=== PATIENT | male | born 1980 | race Caucasian/White ===

== ENCOUNTER 2020-06-28 01:07 | Emergency (ER) | payer BC, SELFPAY ==
[2020-06-28] VITALS (10 sets, daily range): BP systolic 104–149; BP diastolic 62–103; PULSE 81–125; RESP 17–30; TEMP 37.1; O2SAT 96–100
--- NOTE | ~2020-06-28 | XR_ITS ---
EXAMINATION: XR chest 2V DATE: 06/28/2020 03:04 INDICATION: Tachycardia. Weakness and intermittent right chest pain. TECHNIQUE: PA and lateral views of the chest were obtained. COMPARISON: Chest radiograph dated 01/05/2009 FINDINGS: The lungs remain clear with no focal airspace opacities, pulmonary edema, pleural effusion or pneumot horax. The cardiomediastinal silhouette is normal. Visualized bones and soft tissues are unremarkable . IMPRESSION: 1. Normal chest radiograph. Reviewed, dictated and finalized at location A. IMPRESSION: 1. Normal chest radiograph.
--- NOTE | 2020-06-28 01:25 | ECG_ITS ---
Measurements Intervals [place] Rate: 113 P: 40 DE: 139 QRS: 7 QRSD: 94 T: 29 QT: 308 QTc: 423 Interpretive Statements SINUS TACHYCARDIA DELAYED PRECORDIAL R/S TRANSITION ABNORMAL ECG Electronically Signed On 06-29-2020 7:31:46 CDT by Zach Lizarraga D.O.
[2020-06-28 02:00] LABS: Basophils Absolute Auto 0.1 K/mm3 (0.0-0.1); Basophils Percent Auto 0.5 % (0.2-1.2); Eosinophils Absolute Auto 0.2 K/mm3 (0-0.3); Eosinophils Percent Auto 1.9 % (0-4.4); Hematocrit 43.3 % (42.0-52.0); Hemoglobin 13.8 g/dL (14.0-18.0); Immature Granulocyte Absolute 0.05 K/mm3 (0.00-0.031); Immature Granulocyte Percent A 0.4 % (0-0.5); Lymphocytes Absolute Auto 3.56 K/mm3 (0.9-3.2); Lymphocytes Percent Auto 28.8 % (18.3-44.2); Mean Corpuscular HGB Conc 31.9 g/dl (32-36); Mean Corpuscular Hemoglobin 24.9 pg (26-34); Mean Corpuscular Volume 78.2 fl (80-100); Mean Platelet Volume 9.6 fl (7.4-10.4); Monocytes Absolute Auto 0.8 K/mm3 (0.1-0.6); Monocytes Percent Auto 6.3 % (2.6-8.5); Neutrophils Absolute Auto 7.7 K/mm3 (1.3-6.7); Neutrophils Percent Auto 62.1 % (45.5-73.1); Platelet Count Result 372 k/mm3 (150-375); Red Blood Count 5.54 M/mm3 (4.6-6.20); Red Cell Distribution Width 14.2 % (11.5-14.5); White Blood Count 12.4 K/mm3 (4.5-10.0)
[2020-06-28 02:12] LABS: Partial Thromboplastin Time 29.4 SECONDS (22.3-36.8); Prothrombin Time 12.8 Seconds (11.1-14.7)
[2020-06-28 02:24] LABS: Anion Gap 10 mmol/L (8-16); Blood Urea Nitrogen 15 mg/dL (9-20); Calcium 9.1 mg/dL (8.4-10.2); Carbon Dioxide 24 mmol/L (22-30); Chloride 103 mmol/L (98-107); Estimated Glomerular Filt Rate > 60; Glucose 180 mg/dL (75-110); Potassium 4.1 mmol/L (3.4-5.0); Sodium 137 mmol/L (137-145)
[2020-06-28 02:36] LABS: Troponin I < 0.012 ng/mL (0.000-0.034)
[2020-06-28] MEDS: ASPIRIN 81 MG CHEWABLE TABLET 324 MG PO (02:45)
--- NOTE | 2020-06-28 03:56 | ED.GENADULT ---
HPI - General Adult General Chief complaint: Recheck/Abnormal Lab/Rx Stated complaint: hi bp and pulse, lightheaded Time Seen by Provider: 06/28/20 03:40 Source: patient Mode of arrival: EMS Limitations: no limitations History of Present Illness HPI narrative: This patient is a 40 year old male who presents for evaluation of dizziness. He states approximately 3 hours ago he was standing at work when he started feeling weird . He states he felt like he was high and he was told her was pale. He was evaluated at his work's clinic and they told him his HR was 130 and he was hypertensive. He reports his symptoms have resolved now. He states he has right sternal chest pain early but he thought it was due to muscle cramp. He denies nausea, vomiting or diarrhea. Related Data Allergies Allergy/AdvReac Type Severity Reaction Status Date / Time No Known Allergies Allergy Verified 02/03/17 20:02 Review of Systems Review of Systems: All systems reviewed & are unremarkable except as noted in HPI and below Constitutional: Constitutional: Denies chills and Denies fever(s) ENT: Reports dizziness Cardiovascular: Cardiovascular: Reports chest pain Respiratory: Respiratory: Denies cough, Denies dyspnea and Denies wheezing Gastrointestinal: Gastrointestinal: Reports abdominal pain, Denies diarrhea, Denies nausea and Denies vomiting Neurologic: Denies headache(s), Denies focal weakness and Denies numbness PMFSH Past Medical History Medical History (Updated 06/28/20 @ 06:45 by Mila Hayward MD) Syncope Surgical History Surgical History (Updated 06/28/20 @ 04:03 by Mila Hayward MD) H/O cardiac catheterization Social History Social History (Updated 06/28/20 @ 04:04 by Mila Hayward MD) Smoking status: Never smoker Exam Const: General: no acute distress Orientation/consciousness: patient oriented x3 HENMT: Head: normocephalic and atraumatic Face and sinus: face symmetric Eyes: Pupils: Equal, round and reactive pupils present EOM: EOMs intact bilaterally Chest: Chest palpation & inspection: normal inspection of the chest Resp: Effort & Inspection: normal respiratory effort and no retractions Auscultation: clear to auscultation bilaterally Cardio: Rate: regular rate Rhythm: regular rhythm Heart sounds: no murmurs GI: GI Palp: Yes Soft to palpation, No Tenderness to palpation present (GI), No Guarding due to palpation present (GI), No Rigid due to palpation and No Hernia present Skin: General skin exam: normal color Rashes: no rashes Neuro: General: patient oriented x3 and moves all extremities Course Reevaluation(s) Reevaluation #1: PAtient has no complaints. He will follow up with PCP. He denies dizziness with standing up. Date: 06/28/20 Time: 06:43 Vital Signs Vital signs: Vital Signs Temperature 98.7 F 06/28/20 01:16 Pulse Rate 115 H 06/28/20 01:16 Respiratory Rate 18 06/28/20 01:16 Blood Pressure 149/103 H 06/28/20 01:16 Pulse Oximetry 100 06/28/20 01:16 Temperature 98.7 F 06/28/20 01:16 Pulse Rate 88 06/28/20 05:17 Respiratory Rate 28 H 06/28/20 05:17 Blood Pressure 104/62 06/28/20 05:17 Pulse Oximetry 97 06/28/20 05:17 Medical Decision Making Vital Signs Vital Signs: Vital Signs Temperature 98.7 F 06/28/20 01:16 Pulse Rate 115 H 06/28/20 01:16 Respiratory Rate 18 06/28/20 01:16 Blood Pressure 149/103 H 06/28/20 01:16 Pulse Oximetry 100 06/28/20 01:16 Temperature 98.7 F 06/28/20 01:16 Pulse Rate 88 06/28/20 05:17 Respiratory Rate 28 H 06/28/20 05:17 Blood Pressure 104/62 06/28/20 05:17 Pulse Oximetry 97 06/28/20 05:17 Lab Data Lab results reviewed: Yes I reviewed the patient's lab results. Result diagrams: 06/28/20 01:53 06/28/20 01:53 Labs: Lab Results 06/28/20 06/28/20 06/28/20 Range/Units 01:52 01:53 01:53 WBC 12.4 H (4.5-10.0) K/mm3
[2020-06-28 04:30] LABS: D Dimer 0.27 ug/mL (<0.48)
[2020-06-28 04:32] LABS: Add Urine Microscopic? YES; Appearance Urine Clear (Clear); Bilirubin Urine Negative (Negative); Blood Urine 1+ (Negative); Color Urine Yellow (Yellow); Glucose Urine UA Negative (Negative); Ketones Urine Negative (Negative); Leukocyte Esterase Ur Negative LEU/UL (Negative); Mucus Urine Moderate /lpf; Nitrate Urine Negative (Negative); Protein Urine Negative (Negative); Specific Grav Ur 1.027 (1.001-1.035); Squamous Epithelial Cell Urine Few /hpf (Few); Urobilinogen Urine Negative mg/dL (<2.0)
[2020-06-28 04:42] LABS: Troponin I < 0.012 ng/mL (0.000-0.034)
[2020-06-28] MEDS: LACTATED RINGERS 1,000 ML 999 ML IV CONT (05:17)
== END 2020-06-28 07:06 | disposition home or self-care (01) ==
PROVIDERS: Emergency Provider General Practice; PCP Nurse Practitioner Family
DX: R55 Syncope and collapse (principal); R00.0 Tachycardia, unspecified
CPT/HCPCS: 36415; 71046; 80048; 81001; 84484; 85025; 85380; 85610; 85730; 93005; 96360; 99284; A9270; J7120

== ENCOUNTER 2023-01-27 20:05 | Emergency (ER) | payer BC, SELFPAY ==
--- NOTE | ~2023-01-27 | CT_ITS ---
EXAMINATION: CT facial bones wo con DATE: 01/27/2023 20:51 INDICATION: Facial trauma TECHNIQUE: Computed tomography (CT) of the facial bones and maxillofacial region was performed withou t intravenous contrast. The dose-length product (DLP) was 572.57 mGy-cm. Automated exposure control a nd iterative reconstruction technique were employed. COMPARISON: None. FINDINGS: There is mild right periorbital soft tissue swelling. No facial fracture is identified. The globes and orbits are normal. The paranasal sinuses are clear. IMPRESSION: 1. Right periorbital soft tissue swelling without underlying osseous abnormality. Reviewed, dictated and finalized at location F. IMPRESSION: 1. Right periorbital soft tissue swelling without underlying osseous abnormalit y.
--- NOTE | ~2023-01-27 | XR_ITS ---
EXAMINATION: XR chest 2V DATE: 01/27/2023 20:45 INDICATION: Chest pain TECHNIQUE: PA and lateral views of the chest are obtained. COMPARISON: 06/28/2020 FINDINGS: There are minimal airspace opacities of the lower lobes. No pleural effusion or pneumothora x. The cardiomediastinal silhouette is normal. The visualized bones and soft tissues are unremarkable . IMPRESSION: 1. Minimal bibasilar airspace opacities, consistent with atelectasis versus pneumonia. Reviewed, dictated and finalized at location F. IMPRESSION: 1. Minimal bibasilar airspace opacities, consistent with atelectasis versus pne umonia.
--- NOTE | ~2023-01-27 | CT_ITS ---
EXAMINATION: CT brain wo con INDICATION: Head injury COMPARISON: None TECHNIQUE: Standard unenhanced head CT. The dose-length product (DLP) was 681.00 mGy-cm. The mA was a djusted according to patient size. Iterative reconstruction technique was employed. FINDINGS: There is no intracranial hemorrhage, acute infarction, or abnormal mass lesion. The ventric les are normal. There is no abnormal mass effect or midline shift. The galan-white matter differentiat ion is normal. The basal cisterns are patent. The orbits are normal. The paranasal sinuses, mastoids and calvarium are normal. IMPRESSION: 1. No acute intracranial abnormality. Reviewed, dictated and finalized at location F.
--- NOTE | 2023-01-27 20:07 | ECG_ITS ---
Measurements Intervals [place] Rate: 80 P: 38 [place]: 120 QRS: 25 QRSD: 90 T: 32 QT: 356 QTc: 413 Interpretive Statements SINUS RHYTHM BASELINE ARTIFACT- I, II, AVR, AVF NORMAL ECG COMPARED TO ECG 06/28/2020 01:32:13 SINUS RHYTHM NOW PRESENT Electronically Signed On 01-27-2023 22:37:19 CDT by Zach Lizarraga D.O.
[2023-01-27 20:08] VITALS: BP 159/88; PULSE 79; RESP 13; TEMP 36.6; O2SAT 100
[2023-01-27 20:11] VITALS: PULSE 88; RESP 19; O2SAT 100
[2023-01-27 20:15] VITALS: PULSE 73; RESP 24; O2SAT 99
--- NOTE | 2023-01-27 20:24 | ED.GENADULT ---
HPI - General Adult General Chief complaint: Chest Pain Stated complaint: Chest pain/syncopal Time Seen by Provider: 01/27/23 20:14 History of Present Illness HPI narrative: 42-year-old male presenting to the emergency department for evaluation after having a syncopal episode resulting in a fall and facial injury. Patient states this episode occurred approximately 2 hours ago. During the episode patient was having a verbal argument with his and states he did have some increasing anxiety. Patient states he did feel dizzy and lightheaded prior to the episode. Patient is unsure of how he found underneath self and how long he was unconscious. Patient is complaining of right-sided facial pain associated with a periorbital contusion patient is also complaining of reproducible left-sided chest wall pain that is worsened with moving his left arm. Patient reports he does have a prior history of anxiety and has had syncopal episodes. Patient has had admissions related to his syncope. Patient did have a prior stress test approximately 10 years ago which he reportedly failed. Patient did have a cardiac cath that was negative. Patient has no cardiac stents in place. Patient denies any alcohol or THC. Related Data Allergies Allergy/AdvReac Type Severity Reaction Status Date / Time No Known Allergies Allergy Verified 01/27/23 20:13 Review of Systems Review of Systems: All systems reviewed & are unremarkable except as noted in HPI and below PMFSH Past Medical History Medical History (Updated 01/28/23 @ 02:30 by Gab Alejo MD) Syncope Surgical History Surgical History (Updated 06/28/20 @ 04:03 by Mila Hayward MD) H/O cardiac catheterization Social History Social History (Updated 06/28/20 @ 04:04 by Mila Hayward MD) Smoking status: Never smoker Exam Narrative: APPEARANCE: Well appearing, no pain, no distress, well-nourished. HEAD: normocephalic, right-sided facial contusion around the right eye EYES: PERRLA/EOMI, conjunctivae clear. NOSE: Normal no drainage EARS:TMS clear with good light reflex. THROAT: Pharynx clear, no exudate. NECK: Supple. No adenopathy, no masses. RESPIRATORY: Airway patent, respirations nonlabored. Clear to auscultation bilaterally, no rales, rhonchi, wheezing. CARDIOVASCULAR: Regular rate and rhythm without murmurs rubs or gallops. ABDOMINAL: Soft, nontender, nondistended, normal bowel sounds MUSCULOSKELETAL: Moves all extremities. Strength/ROM intact, No edema, No calf tenderness. NEURO: Alert. Cranial nerves II through XII intact. Grossly intact SKIN: Warm, dry. Normal Color Course Course Emergency Course: 42-year-old male presented the ED for evaluation of head injury and syncope. Differential diagnosis for patient syncope does include hyperventilation, anxiety, vasovagal, cardiac arrhythmia, different diagnosis for his head injury does include intracranial abnormality including hemorrhage, facial fracture. Head CT was ordered to rule out any intracranial abnormality. Cardiac work-up is being ordered. 12:03 AM patient is afebrile with no leukocytosis. Patient's electrolytes are similar to his baseline. Patient's troponins were negative. Patient had a negative head and facial CT. Chest x-ray showed atelectasis. EKG showed normal sinus rhythm. Low concern for ACS. Patient's symptoms have resolved patient's had no further issues with heart palpitations or near syncope. Patient feels this was induced by the emotional upset. Patient's left-sided chest pain is very reproducible with palpation of the chest wall. Low concern for ACS. Patient was encouraged of close follow-up with his primary care physician. All question concerns were addressed. Patient was well-appearing at time of discharge. Vital Signs Vital signs: Vital Signs Temperature 97.8 F 01/27/23 20:08 Pulse Rate 79 01/27/23 20:08 Respiratory Rate 13 01/27/23 20:08 Blood Pressure 159/88 H
[2023-01-27 20:26] LABS: Basophils Absolute Auto 0.1 K/mm3 (0.0-0.1); Basophils Percent Auto 0.6 % (0.2-1.2); Eosinophils Absolute Auto 0.1 K/mm3 (0-0.3); Eosinophils Percent Auto 0.8 % (0-4.4); Hematocrit 44.5 % (42.0-52.0); Hemoglobin 14.2 g/dL (14.0-18.0); Immature Granulocyte Absolute 0.02 K/mm3 (0.00-0.031); Immature Granulocyte Percent A 0.2 % (0-0.5); Lymphocytes Absolute Auto 2.55 K/mm3 (0.9-3.2); Lymphocytes Percent Auto 29.3 % (18.3-44.2); Mean Corpuscular HGB Conc 31.9 g/dl (32-36); Mean Corpuscular Volume 84.8 fl (80-100); Mean Platelet Volume 9.4 fl (7.4-10.4); Monocytes Absolute Auto 0.4 K/mm3 (0.1-0.6); Monocytes Percent Auto 4.7 % (2.6-8.5); Neutrophils Absolute Auto 5.6 K/mm3 (1.3-6.7); Neutrophils Percent Auto 64.4 % (45.5-73.1); Platelet Count Result 333 k/mm3 (150-375); Red Blood Count 5.25 M/mm3 (4.6-6.20); Red Cell Distribution Width 14.2 % (11.5-14.5); White Blood Count 8.7 K/mm3 (4.5-10.0)
[2023-01-27 20:38] LABS: Alanine Aminotransferase 23 U/L (6-50); Albumin Level 4.5 g/dL (3.5-5.1); Alkaline Phosphatase 72 U/L (38-126); Anion Gap 8 mmol/L (8-16); Aspartate Amino Transferase 25 U/L (17-59); Bilirubin,Total 0.6 mg/dL (0.2-1.3); Blood Urea Nitrogen 16 mg/dL (9-20); Carbon Dioxide 31 mmol/L (22-30); Chloride 104 mmol/L (98-107); Estimated CRCL calculation 150 ml/min; Estimated Glomerular Filt Rate > 60; Glucose 139 mg/dL (65-110); Lipase 60 U/L (23-300); Potassium 3.8 mmol/L (3.4-5.0); Sodium 143 mmol/L (137-145)
[2023-01-27 20:41] LABS: INR 1.2; Prothrombin Time 14.4 Seconds (11.1-14.7)
[2023-01-27 20:42] LABS: Partial Thromboplastin Time 29.3 SECONDS (22.3-36.8)
[2023-01-27 20:49] LABS: Troponin I < 0.012 ng/mL (0.000-0.034)
[2023-01-27 20:52] VITALS: PULSE 69; RESP 12; O2SAT 100
[2023-01-27 21:01] VITALS: BP 114/62; PULSE 62; RESP 17; O2SAT 98
[2023-01-27 23:56] LABS: Troponin I < 0.012 ng/mL (0.000-0.034)
[2023-01-28 00:23] VITALS: BP 128/78; PULSE 68; RESP 19; O2SAT 100
== END 2023-01-28 00:24 | disposition home or self-care (01) ==
PROVIDERS: Emergency Provider Emergency Medicine; PCP Nurse Practitioner Family
DX: R55 Syncope and collapse (principal); S05.11XA Contusion of eyeball and orbital tissues, right eye, initial encounter; R07.9 Chest pain, unspecified; R91.8 Other nonspecific abnormal finding of lung field; W18.39XA Other fall on same level, initial encounter
CPT/HCPCS: 36415; 70450; 70486; 71046; 80053; 83690; 84484; 85025; 85610; 85730; 93005; 99284